=== PATIENT | female | born 1985 | race Hispanic/Latino ===

== ENCOUNTER 2017-07-02 20:08 | Emergency (ER) | payer OTHER ==
[2017-07-02 20:33] LABS: #Basophils 0.1 thou/uL (0.0-0.2); #Eosinphils 0.2 thou/uL (0.0-0.7); #Lymphocytes 3.3 thou/uL (1.20-3.40); #Monocytes 0.5 thou/uL (0.11-0.59); #Neutrophils 3.9 thou/uL (1.40-6.50); %Basophils 1.2 % (0.0-1.0); %Lymphocytes 41.4 % (21.0-51.0); %Monocytes 6.5 % (0.0-10.0); Mean Platelet Volume 8.8 fL (7.4-10.4); Red Blood Cell (RBC) Count 4.25 mill/uL (4.20-5.40)
[2017-07-02 20:53] LABS: Lactic Acid - Sepsis 1.4 mmol/L (0.5-2.2)
[2017-07-02 20:59] LABS: ALT (SGPT) 14 U/L (8-55); AST (SGOT) 19 U/L (5-34); Alkaline Phosphatase 57 U/L (40-150); Anion Gap 12 mmol/L (10-20); BUN (Urea Nitrogen) 14 mg/dL (7.0-18.7); Bilirubin, Total 0.2 mg/dL (0.2-1.2); Calc. Creatinine Clearance 0 mL/min (70-130); Calcium 9.3 mg/dL (7.8-10.44); Carbon Dioxide 24 mmol/L (22-29); Chloride 106 mmol/L (98-107); Estimated GFR-MDRD Greater than 90; Globulin 3.9 g/dL (2.4-3.5)
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
[2017-07-02 21:08] LABS: Lipase 25 U/L (8-78)
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
[2017-07-02] MEDS ORDERED: HYDROcodone/Acetaminophen 5/325 mg Tablet ONE (22:02)
[2017-07-02] MEDS ORDERED: Ketorolac Tromethamine 30 MG/ML VIAL ONE (23:03)
== END 2017-07-02 23:15 | disposition home or self-care (01) ==
LOC: ERS 20:08
DX: M54.2 Cervicalgia (principal); R51 Headache; R11.2 Nausea with vomiting, unspecified; V89.2XXA Person injured in unspecified motor-vehicle accident, traffic, initial encounter
CPT/HCPCS: 70450; 72125; 80053; 80307; 83605; 83690; 85025; 96374; G0390; J1885

== ENCOUNTER 2017-07-12 09:42 | Outpatient (CLI) | payer OTHER ==
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
== END 2017-07-12 09:43 | disposition home or self-care (01) ==
LOC: TBSIIMAG 09:42
PROVIDERS: ATTEND Surgery
DX: G93.0 Cerebral cysts (principal)
CPT/HCPCS: 70553

== ENCOUNTER 2017-09-13 08:40 | Emergency (ER) | payer OTHER ==
[2017-09-13 09:09] LABS: #Eosinphils 0.1 thou/uL (0.0-0.7); #Lymphocytes 1.2 thou/uL (1.20-3.40); #Monocytes 0.4 thou/uL (0.11-0.59); #Neutrophils 4.3 thou/uL (1.40-6.50); %Basophils 0.1 % (0.0-1.0); %Eosinophils 1.4 % (0.0-10.0); %Lymphocytes 20.1 % (21.0-51.0); Mean Platelet Volume 8.3 fL (7.4-10.4); Red Blood Cell (RBC) Count 4.69 mill/uL (4.20-5.40)
[2017-09-13 09:33] LABS: ALT (SGPT) 21 U/L (8-55); AST (SGOT) 21 U/L (5-34); Alkaline Phosphatase 54 U/L (40-150); Anion Gap 11 mmol/L (10-20); BUN (Urea Nitrogen) 11 mg/dL (7.0-18.7); Bilirubin, Total 0.6 mg/dL (0.2-1.2); Calc. Creatinine Clearance 0 mL/min (70-130); Calcium 8.9 mg/dL (7.8-10.44); Carbon Dioxide 27 mmol/L (22-29); Chloride 104 mmol/L (98-107); Estimated GFR-MDRD 85; Globulin 3.8 g/dL (2.4-3.5); Lipase 16 U/L (8-78); Protein, Total 7.8 g/dL (6.0-8.3)
[2017-09-13 09:36] LABS: Bilirubin Small (Negative); Blood, Urine Negative (Negative); Glucose, Urine (Dipstick) Negative (Negative); Ketone, Urine Trace mg/dL (Negative); Nitrite Negative (Negative); Protein, Urine (Dipstick) Trace mg/dL (Neg-Trace)
[2017-09-13 09:41] LABS: Bacteria/HPF 2+ HPF (None Seen); Hyaline Casts/LPF 4-6 HYALINE CAST LPF (0-3 Hyaline)
[2017-09-13 09:49] LABS: RBC/HPF 0-3 HPF (0-3)
[2017-09-13] MEDS ORDERED: Ondansetron HCl/PF 4 MG/2 ML Vial ONE (09:57)
[2017-09-13] MEDS ORDERED: Pantoprazole 40 MG VIAL ONE (09:57)
--- NOTE | 2017-09-13 11:11 | ULT ---
RIGHT UPPER QUADRANT ULTRASOUND: HISTORY: A 32-year-old female with right upper quadrant pain and midepigastric pain with nausea and vomiting. FINDINGS: The gallbladder is demonstrated without evidence of gallstones, wall thickening, edema, or pericholec ystic fluid. No ductal dilatation. The common duct is not dilated. Visualized pancreas and right k idney and liver are unremarkable. IMPRESSION: No evidence of gallstones or other acute process. POS: [facility]
== END 2017-09-13 11:12 | disposition home or self-care (01) ==
LOC: ERS 08:40
DX: N39.0 Urinary tract infection, site not specified (principal)
CPT/HCPCS: 36415; 76705; 80053; 81003; 81015; 81025; 83690; 85025; 87086; 96361; 96374; 96375; C9113; J2405

== ENCOUNTER 2018-04-23 03:44 | Emergency (ER) | payer OTHER ==
[2018-04-23] MEDS ORDERED: Ibuprofen 800 MG TAB ONE (04:41)
== END 2018-04-23 04:49 | disposition home or self-care (01) ==
LOC: ERS 03:44
DX: S50.12XA Contusion of left forearm, initial encounter (principal); V43.52XA Car driver injured in collision with other type car in traffic accident, initial encounter
CPT/HCPCS: 99283

== ENCOUNTER 2024-08-26 07:33 | Emergency (ER) | payer SELFPAY ==
[2024-08-26] MEDS ORDERED: Ondansetron PF 4 MG/2 ML Vial ONE (08:14)
[2024-08-26] MEDS ORDERED: Ketorolac Tromethamine 30 MG (1 mL) VIAL ONE (08:14)
[2024-08-26] MEDS ORDERED: Iopamidol-370 76% 500 ML MDV (1 ML CHARGE) ONE (08:33)
[2024-08-26 08:38] LABS: #Basophils Less than 0.03 10x3/uL (0.0-0.2); %Basophils 0.3 % (0.0-1.0); %Eosinophils 0.5 % (0.0-10.0); %Monocytes 7.1 % (0.0-10.0); %Neutrophils 63.6 % (42.0-75.0); Hematocrit 42.4 % (36.0-47.0); Hemoglobin 14.3 g/dL (12.0-16.0); Mean Corpuscular HGB CONC 33.7 g/dL (32.0-36.0); Mean Corpuscular Hemoglobin 29.5 pg (27.0-31.0); Mean Corpuscular Volume 87.6 fL (78.0-98.0); Mean Platelet Volume 11.7 fL (7.4-10.4); Platelet Count 228 10x3/uL (130-400); RBC Distribution Width 12.9 % (11.5-14.5); Red Blood Cell (RBC) Count 4.84 mill/uL (4.20-5.40)
[2024-08-26 08:55] LABS: ALT (SGPT) 13 U/L (8-55); AST (SGOT) 15 U/L (5-34); Alkaline Phosphatase 55 U/L (40-110); Anion Gap 12 mmol/L (10-20); BUN (Urea Nitrogen) 11 mg/dL (7.0-18.7); Bilirubin, Total 0.4 mg/dL (0.2-1.2); Calc. Creatinine Clearance 0 mL/min (70-130); Calcium 9.5 mg/dL (7.8-10.44); Carbon Dioxide 26 mmol/L (22-29); Chloride 102 mmol/L (98-107); Estimated GFR 92; Glucose 94 mg/dL (70-105); Lipase 26 U/L (8-78); Sodium 136 mmol/L (136-145)
[2024-08-26 08:57] LABS: Bacteria/HPF None Seen HPF (None Seen); Bilirubin Negative (Negative); Blood, Urine Negative (Negative); CAUTI Indications for Culture Pelvic or flank pain; Clarity Clear (Clear); Glucose, Urine (Dipstick) Normal (Negative); Ketone, Urine Negative (Negative); Leukocyte Negative Leu/uL (Negative); Nitrite Negative (Negative); Protein, Urine (Dipstick) Negative (Neg-Trace); RBC/HPF 0-3 HPF (0-3); Specific Gravity, Urine 1.022 (1.002-1.036); Urobilinogen Normal mg/dL (Less than 2); WBC/HPF 0-3 HPF (0-3)
[2024-08-26 08:58] LABS: Urine Culture Reflex No No
[2024-08-26 09:05] LABS: BHCG - Serum Negative (NEGATIVE); Pregs Control Background? CLEAR/WHITE (CLR/WHITE); Pregs Control Bar Appear? YES (CONTROL BAR)
== END 2024-08-26 11:17 | disposition home or self-care (01) ==
LOC: ERS 07:33
DX: N30.80 Other cystitis without hematuria (principal)
CPT/HCPCS: 36415; 74177; 76856; 80053; 81001; 83690; 84703; 85025; 96374; 96375; J1885; J2405; Q9967